=== PATIENT | female | born 1950 | race Two or more races ===

== ENCOUNTER 2020-09-14 12:45 | Inpatient (IN) | payer OTHER ==
[~2020-09-14] VITALS: Ht 157.5 cm; Wt 76.7 kg
[2020-09-15] MEDS ORDERED: COZAAR50 MG PO (12:48)
[2020-09-15] MEDS ORDERED: FORTAMET500 MG PO (12:49)
== END 2020-09-19 14:00 | disposition home or self-care (01) | DRG 741 ==
LOC: O/R 09-16 04:34 → OB/GYN 09-16 04:34 → O/R 09-16 09:20 → SURH 09-16 10:30 → OB/GYN 09-16 11:05 → SURH 09-16 12:45 → OB/GYN 09-19 14:00
PROVIDERS: ADMIT Specialist; ATTEND Specialist
PROC: 0UT20ZZ Resection of Bilateral Ovaries, Open Approach (ICD-10-PCS; 2020-09-16)
PROC: 0UT70ZZ Resection of Bilateral Fallopian Tubes, Open Approach (ICD-10-PCS; 2020-09-16)
PROC: 07BC0ZZ Excision of Pelvis Lymphatic, Open Approach (ICD-10-PCS; 2020-09-16)
PROC: 0DBU0ZZ Excision of Omentum, Open Approach (ICD-10-PCS; 2020-09-16)
PROC: 0UT90ZZ Resection of Uterus, Open Approach (ICD-10-PCS; principal; 2020-09-16 10:30)
DX: C54.1 Malignant neoplasm of endometrium (principal); D25.1 Intramural leiomyoma of uterus; N72 Inflammatory disease of cervix uteri; D39.11 Neoplasm of uncertain behavior of right ovary; I10 Essential (primary) hypertension; E78.5 Hyperlipidemia, unspecified; E03.9 Hypothyroidism, unspecified

== ENCOUNTER 2022-02-02 09:20 | Outpatient (CLI) | payer OTHER ==
[~2022-02-02 09:20] MED LIST: COZAAR50 MG PO; FORTAMET500 MG PO
== END 2022-02-02 09:51 | disposition home or self-care (01) ==
LOC: RX STUDY 09:20
PROVIDERS: ATTEND Colon & Rectal Surgery
DX: K57.20 Diverticulitis of large intestine with perforation and abscess without bleeding (principal)

== ENCOUNTER 2022-05-05 08:45 | Inpatient (IN) | payer OTHER ==
[~2022-05-05] VITALS: Ht 157.5 cm; Wt 68.9 kg
== END 2022-06-17 19:13 | disposition home or self-care (01) | DRG 329 ==
LOC: SURG 05-11 05:51 → SURH 05-11 05:51 → O/R 05-11 05:51 → SURH 05-11 07:00 → SURG 05-24 14:02
PROVIDERS: ADMIT Colon & Rectal Surgery; ATTEND Colon & Rectal Surgery
PROC: 0DBP0ZZ Excision of Rectum, Open Approach (ICD-10-PCS; 2022-05-11)
PROC: 0DB80ZZ Excision of Small Intestine, Open Approach (ICD-10-PCS; 2022-05-11)
PROC: 0DBM0ZZ Excision of Descending Colon, Open Approach (ICD-10-PCS; 2022-05-11)
PROC: 0WUF07Z Supplement Abdominal Wall with Autologous Tissue Substitute, Open Approach (ICD-10-PCS; 2022-05-11)
PROC: 0KXL0ZZ Transfer Left Abdomen Muscle, Open Approach (ICD-10-PCS; 2022-05-11)
PROC: 0KXK0ZZ Transfer Right Abdomen Muscle, Open Approach (ICD-10-PCS; 2022-05-11)
PROC: 0DTN0ZZ Resection of Sigmoid Colon, Open Approach (ICD-10-PCS; principal; 2022-05-11 07:00)
PROC: 30233N1 Transfusion of Nonautologous Red Blood Cells into Peripheral Vein, Percutaneous Approach (ICD-10-PCS; 2022-05-16)
PROC: 02HV33Z Insertion of Infusion Device into Superior Vena Cava, Percutaneous Approach (ICD-10-PCS; 2022-05-21)
PROC: B54DZZZ Ultrasonography of Bilateral Lower Extremity Veins (ICD-10-PCS; 2022-05-21)
PROC: BW211ZZ Computerized Tomography (CT Scan) of Abdomen and Pelvis using Low Osmolar Contrast (ICD-10-PCS; 2022-05-25)
PROC: 0TQ60ZZ Repair Right Ureter, Open Approach (ICD-10-PCS; 2022-05-30)
PROC: 0T760DZ Dilation of Right Ureter with Intraluminal Device, Open Approach (ICD-10-PCS; 2022-05-30)
PROC: BT1B1ZZ Fluoroscopy of Bladder and Urethra using Low Osmolar Contrast (ICD-10-PCS; 2022-05-30)
PROC: B24BYZZ Ultrasonography of Heart with Aorta using Other Contrast (ICD-10-PCS; 2022-06-03)
PROC: BW211ZZ Computerized Tomography (CT Scan) of Abdomen and Pelvis using Low Osmolar Contrast (ICD-10-PCS; 2022-06-03)
PROC: 0W9H3ZZ Drainage of Retroperitoneum, Percutaneous Approach (ICD-10-PCS; 2022-06-06)
PROC: BW211ZZ Computerized Tomography (CT Scan) of Abdomen and Pelvis using Low Osmolar Contrast (ICD-10-PCS; 2022-06-16)
DX: K57.20 Diverticulitis of large intestine with perforation and abscess without bleeding (principal); K68.19 Other retroperitoneal abscess; L03.311 Cellulitis of abdominal wall; T81.31XA Disruption of external operation (surgical) wound, not elsewhere classified, initial encounter; T81.49XA Infection following a procedure, other surgical site, initial encounter; S37.13XA Laceration of ureter, initial encounter; B37.89 Other sites of candidiasis; N28.89 Other specified disorders of kidney and ureter; K66.0 Peritoneal adhesions (postprocedural) (postinfection); I10 Essential (primary) hypertension; E11.9 Type 2 diabetes mellitus without complications; Z43.3 Encounter for attention to colostomy; Z79.84 Long term (current) use of oral hypoglycemic drugs; B96.20 Unspecified Escherichia coli [E. coli] as the cause of diseases classified elsewhere

== ENCOUNTER 2022-08-02 15:47 | Inpatient (IN) | payer OTHER ==
[~2022-08-02] VITALS: Ht 154.9 cm; Wt 59.0 kg
== END 2022-08-24 07:30 | disposition expired | DRG 393 ==
LOC: ER 15:47 → SURH 08-03 17:31 → SURG 08-04 15:37
PROVIDERS: ADMIT Specialist; ATTEND Specialist
PROC: BW211ZZ Computerized Tomography (CT Scan) of Abdomen and Pelvis using Low Osmolar Contrast (ICD-10-PCS; 2022-08-02)
PROC: 8E0ZXY6 Isolation (ICD-10-PCS; principal; 2022-08-04)
PROC: 02HV33Z Insertion of Infusion Device into Superior Vena Cava, Percutaneous Approach (ICD-10-PCS; 2022-08-05)
PROC: 3E0436Z Introduction of Nutritional Substance into Central Vein, Percutaneous Approach (ICD-10-PCS; 2022-08-06)
PROC: 0W9H30Z Drainage of Retroperitoneum with Drainage Device, Percutaneous Approach (ICD-10-PCS; 2022-08-08)
PROC: BW211ZZ Computerized Tomography (CT Scan) of Abdomen and Pelvis using Low Osmolar Contrast (ICD-10-PCS; 2022-08-15)
PROC: BW211ZZ Computerized Tomography (CT Scan) of Abdomen and Pelvis using Low Osmolar Contrast (ICD-10-PCS; 2022-08-17)
PROC: 0W9H30Z Drainage of Retroperitoneum with Drainage Device, Percutaneous Approach (ICD-10-PCS; 2022-08-18)
PROC: BW28ZZZ Computerized Tomography (CT Scan) of Head (ICD-10-PCS; 2022-08-22)
PROC: 5A0935A Assistance with Respiratory Ventilation, Less than 24 Consecutive Hours, High Flow/Velocity Cannula (ICD-10-PCS; 2022-08-23)
PROC: 30243N1 Transfusion of Nonautologous Red Blood Cells into Central Vein, Percutaneous Approach (ICD-10-PCS; 2022-08-23)
DX: N82.3 Fistula of vagina to large intestine (principal); K68.19 Other retroperitoneal abscess; N39.0 Urinary tract infection, site not specified; Z16.12 Extended spectrum beta lactamase (ESBL) resistance; T80.1XXA Vascular complications following infusion, transfusion and therapeutic injection, initial encounter; I95.89 Other hypotension; R00.1 Bradycardia, unspecified; I46.8 Cardiac arrest due to other underlying condition; R41.0 Disorientation, unspecified; B96.20 Unspecified Escherichia coli [E. coli] as the cause of diseases classified elsewhere; B96.5 Pseudomonas (aeruginosa) (mallei) (pseudomallei) as the cause of diseases classified elsewhere; C54.1 Malignant neoplasm of endometrium; I10 Essential (primary) hypertension; Z90.49 Acquired absence of other specified parts of digestive tract